=== PATIENT | male | born 1970 | race Caucasian/White ===

== ENCOUNTER 2017-03-27 13:22 | Inpatient (IN) | payer OTHER ==
--- NOTE | 2017-03-27 14:21 | PDOC ---
History of Present Illness - General Chief Complaint: Irregular Heart Beat Stated Complaint: CHEST PAIN Time Seen by Provider: 03/27/17 13:43 History Source: Patient Exam Limitations: Language Barrier ([employer] #[id number]) - History of Present Illness Initial Comments: 03/27/17 14:25 This is a 46-year-old man with past medical history of hypercholesterolemia and qlh-vjggasc-zqrsvthzr diabetes who presents to the emergency room today with palpitations and chest pain starting at approximately 4 AM today. Patient states usually wakes up around 4 AM to check sugars is diabetic and when he woke up he was experiencing "tachycardia" and pain to the left side of his chest. He reports the pain started at the left chest and radiated into his shoulder and down to the fingertips where he experiences tingling isolated to the left fingertips. He also was experiencing shortness of breath and dry cough this morning when he was having the chest pain. He states he beleived that the pain spontaneously resolved. Patient states the pain has gotten better since initial onset and currently is pain-free. He states that he has seen a sheetfed press operator in [place] but does not remember the name and that he was evaluated in the emergency department approximately 2 months ago and was placed on blood pressure medication for which he finished taking. He has not followed up with his primary doctor regarding the high blood pressure or the medications. Patient does not remember the name of the medication he was prescribed. Patient denies any fevers, chills, headaches, dizziness, abdominal pain, nausea, vomiting. Patient did note some rhinorrhea at the time use only chest pain. LESLIE-Kwabena Gibson Collator Hand- unknown [place] Denies tobacco Occasional EtOH Denies drugs Patient denies any travel outside the [place] within the past 30 days. Patient states his is travel to the [facility] and he has been around her but she is not experiencing any symptoms has been in her usual state of health since arriving from the [facility] approximately one month ago. Past History - Past Medical History Allergies/Adverse Reactions: Allergies Allergy/AdvReac Type Severity Reaction Status Date / Time No Known Allergies Allergy Verified 03/27/17 13:32 Home Medications: Ambulatory Orders Exenatide Microspheres [Bydureon] 2 mg SQ Q7D 03/27/17 Lisinopril [Prinivil] 10 mg PO DAILY 03/27/17 Metformin HCl [Metformin HCl ER] 1,000 mg PO BID 03/27/17 COPD: No Diabetes: Yes Hypercholesterolemia: Yes - Family Disease History Family Disease History: Diabetes: Mother - Immunization History Immunization Up to Date: Yes - Suicide/Smoking/Psychosocial Hx Smoking History: Never smoked Have you smoked in the past 12 months: No Hx Alcohol Use: No Drug/Substance Use Hx: No Substance Use Type: None *Physical Exam - Vital Signs Last Vital Signs Temp Pulse Resp BP Pulse Ox 97.5 F L 80 20 118/70 97 03/29/17 06:00 03/29/17 06:00 03/29/17 06:00 03/29/17 06:00 03/28/17 21:00 Heart Score/ECG Review - History History: Moderately suspicious - Electrocardiogram EKG: Normal - Age Age: 45-65 - Risk Factors Risk Factors Heart Score: Yes Hx Hypercholesterolemia, Yes Hx Diabetes, Yes Hx Obesity Based on the list above the patient has:: >/=3 risk factors or Hx atherosclerotic disease - Troponin Troponin: </= normal limit - Score Heart Score - Total: 4 - ECG Intrepretation Rhythm: Regular Rhythm - ECG Impressions Normal ECG: Yes ED Treatment Course - LABORATORY CBC & Chemistry Diagram: 03/27/17 14:40 03/27/17 14:40 - ADDITIONAL ORDERS Additional order review: 03/27/17 14:40 RBC 5.10 MCV 91.3 MCHC 34.1 RDW 13.6 MPV 6.8 L Neutrophils % 55.7 Lymphocytes % 31.3 Monocytes % 7.9 Eosinophils % 4.3 Basophils % 0.8 - RADIOLOGY Radiology Studies Ordered: Category Date Time Status CHEST PA & LAT [RAD] Stat Radiology 03/27/17 14:22 Completed - Medications Given in the ED: ED Medications Discontinued Medications Generic Name Dose Route Start Last Admin Trade Name Freq PRN Reason Stop Dose Admin Aspirin 324 mg 03/27/17 14:22 03/27/17 14:50 Asa - PO 03/27/17 14:23 324 mg ONCE ONE Administration Medical Decision Making - Medical Decision Making 03/27/17 14:32 A/P: This is a 46-year-old man with past medical history of hypercholesterolemia and axn-mzybkxw-qzawpmwrn diabetes who presents to the emergency room today with palpitations and chest pain starting at approximately 4 AM today. Patient states usually wakes up around 4 AM to check sugars is diabetic and when he woke up he was experiencing "tachycardia" and pain to the left side of his chest. He reports the pain started at the left chest and radiated into his shoulder and down to the fingertips where he experiences tingling isolated to the left fingertips. He also was experiencing shortness of breath and dry cough this morning when he was having the chest pain. He states he beleived that the pain spontaneously resolved. Patient states the pain has gotten better since initial onset and currently is pain-free. He states that he has seen a sheetfed press operator in [place] but does not remember the name and that he was evaluated in the emergency department approximately 2 months ago and was placed on blood pressure medication for which he finished taking. He has not followed up with his primary doctor regarding the high blood pressure or the medications. Patient does not remember the name of the medication he was prescribed. Patient denies any fevers, chills, headaches, dizziness, abdominal pain, nausea, vomiting. Patient did note some rhinorrhea at the time use only chest pain. Reports feeling bloated.Chest nontender. Respirations even and unlabored without accessory muscle use. Lungs clear to auscultation bilaterally. Resident's note on percussion of chest. RRR. S1 and S2 present. No murmur, rub or gallop auscultated. There is no peripheral edema noted. Abdomen with hyperactive bowel sounds. Abdomen soft nontender nondistended. Differential diagnoses include ACS, CHF, arrhythmia, pneumonia, bronchitis, GERD I will obtain a CBC with differential, CMP, lipase, cardiac profile, BNP, chest x-ray, EKG. I will give the patient 324 milligrams of aspirin by mouth. I will reevaluate the patient after laboratory testing and radiographic testing is completed. 03/27/17 16:46 The initial troponin is negative. Case discussed with RAHEL Thorne who is covering for Dr. Cortes. She accepts patient for tele obs. *DC/Admit/Observation/Transfer Diagnosis at time of Disposition: Chest pain in adult - Discharge Dispostion Condition at time of disposition: Guarded Admit: Yes - Referrals - Patient Instructions - Post Discharge Activity
[2017-03-27] MEDS ORDERED: ASPIRIN 81 MG CHEWABLE TABLETS PO ONE (14:22)
[2017-03-27] MEDS ORDERED: ASPIRIN 81 MG CHEWABLE TABLETS ONE (14:47)
[2017-03-27 14:48] LABS: BASOPHIL 0.8 % (0-2.0); EOSINOPHIL 4.3 % (0-4.5); MCH 31.1 pg (25.7-33.7); MCHC 34.1 g/dl (32.0-35.9); MEAN CELL VOLUME 91.3 fl (80-96); MEAN PLT VOLUME 6.8 fl (7.5-11.1); NEUTROPHILS 55.7 % (42.8-82.8); PLATELET COUNT 223 K/MM3 (134-434); RDW 13.6 % (11.9-15.9); WHITE BLOOD COUNT 8.3 K/mm3 (4.0-10.0)
[2017-03-27 15:23] LABS: ANION GAP 9 (8-16); BILIRUBIN,TOTAL 0.5 mg/dL (0.2-1.0); CO2 27 mmol/L (21-32); CREATININE 0.9 mg/dL (0.7-1.3); GLUCOSE,RANDOM 99 mg/dL (74-106); MAGNESIUM 1.9 mg/dL (1.8-2.4); SGOT/AST 28 U/L (15-37); SGPT/ALT 39 U/L (12-78); TOT PROT 7.6 g/dl (6.4-8.2)
[2017-03-27 15:25] LABS: ALK PHOS 65 U/L (45-117); CPK 223 IU/L (39-308); TROPONIN I < 0.02 ng/ml (0.00-0.05)
[2017-03-27 16:38] LABS: INR 0.99 (0.82-1.09); PROTHROMBIN TIME (PATIENT) 11.2 SEC (9.98-11.88)
[2017-03-27] MEDS ORDERED: EXENATIDE MICROSPHERES 2 MG SQ SCH (16:45)
[2017-03-27] MEDS ORDERED: PATIENT'S OWN MEDICATION (NON-FORMULARY) (Metformin Hcl [Metformin Hcl Er] 1,000 MG) PO SCH (22:00)
[2017-03-27 23:25] LABS: CPK 181 IU/L (39-308); TROPONIN I < 0.02 ng/ml (0.00-0.05)
[2017-03-28] MEDS: ASPIRIN 325 MG ENTERIC COATED TABLET (FP) PO SCH ×2 (01:34→09:06)
[2017-03-28 03:48] VITALS: BMI 28.7
[2017-03-28] MEDS: LISINOPRIL 10 MG TABLET (FP) PO SCH (09:06)
[2017-03-28] MEDS: HEPARIN NA (PORCINE) 5,000 UNITS/ML 1ML VIAL SQ SCH ×2 (09:06→21:31)
--- NOTE | 2017-03-28 13:10 | CON.CARD ---
Consult Consult Specialty:: Cardiology Referred by:: Dr Parra Reason for Consultation:: chest pain - History of Present Illness Chief Complaint: chest pain History of Present Illness: He is a 46 year old man squvy2dr of htn, chol, diabetes who came to the hospital after an episode of chest pain retrosternal across chest with palpitations described a a rapid heart beat and sob. The pain was pressure like , lasted over 15 minutes. Non exertional. No orthopnea, pnd or edema. Baseline exercise tolerance is good. - History Source History Provided By: Patient, Medical Record - Alcohol/Substance Use Hx Alcohol Use: No (social) - Smoking History Smoking history: Never smoked Have you smoked in the past 12 months: No Home Medications - Allergies Allergies/Adverse Reactions: Allergies Allergy/AdvReac Type Severity Reaction Status Date / Time No Known Allergies Allergy Verified 03/27/17 13:32 - Home Medications Home Medications: Ambulatory Orders Exenatide Microspheres [Bydureon] 2 mg SQ Q7D 03/27/17 Lisinopril [Prinivil] 10 mg PO DAILY 03/27/17 Metformin HCl [Metformin HCl ER] 1,000 mg PO BID 03/27/17 Family Disease History - Family Disease History Family History: Unable to Obtain Review of Systems - Review of Systems Constitutional: reports: No Symptoms Eyes: reports: No Symptoms HENT: reports: No Symptoms Neck: reports: No Symptoms Cardiovascular: reports: Chest Pain Respiratory: reports: No Symptoms Gastrointestinal: reports: Abdominal Pain, Bloating Genitourinary: reports: No Symptoms Vital Signs: Vital Signs Temperature 98.4 F 03/28/17 09:05 Pulse Rate 80 03/28/17 09:05 Respiratory Rate 16 03/28/17 09:05 Blood Pressure 114/76 03/28/17 09:05 O2 Sat by Pulse Oximetry (%) 98 03/28/17 09:05 Constitutional: Yes: Well Nourished, No Distress Eyes: Yes: Conjunctiva Clear, EOM Intact HENT: Yes: Atraumatic, Normocephalic Neck: Yes: Trachea Midline Respiratory: Yes: CTA Bilaterally Gastrointestinal: Yes: Normal Bowel Sounds, Soft Cardiovascular: Yes: Regular Rate and Rhythm JVD: No Carotid Bruit: No PMI: Non-Displaced Heart Sounds: Yes: S1, S2 Extremities: Yes: WNL Edema: No Peripheral Pulses WNL: Yes - Other Data Labs, Other Data: CBC, BMP 03/27/17 14:40 03/27/17 14:40 INR, PTT INR 0.99 (0.82-1.09) 03/27/17 14:40 Troponin, BNP 03/27/17 03/27/17 03/27/17 14:40 14:40 22:32 Troponin I < 0.02 < 0.02 B-Natriuretic Peptide 13.43 Troponin, BNP 03/27/17 03/27/17 03/27/17 14:40 14:40 22:32 Troponin I < 0.02 < 0.02 B-Natriuretic Peptide 13.43 Imaging - Results Chest X-ray: Report Reviewed (ericka) EKG: Report Reviewed (normal ecg) Problem List - Problems (1) Chest pain in adult Assessment/Plan: He has atypical chest pain but multiple risk factors for CAD. Will arrange for echo and stress test. check lipid panel fasting. No evidence of ACS. Code(s): R07.9 - CHEST PAIN, UNSPECIFIED
--- NOTE | 2017-03-28 15:30 | EKG ---
Test Reason : Blood Pressure : / mmHG Vent. Rate : 075 BPM Atrial Rate : 075 BPM P-R Int : 150 ms QRS Dur : 088 ms QT Int : 360 ms P-R-T Axes : 000 -01 018 degrees QTc Int : 402 ms NORMAL SINUS RHYTHM MODERATE VOLTAGE CRITERIA FOR LVH, MAY BE NORMAL VARIANT BORDERLINE ECG NO PREVIOUS ECGS AVAILABLE NO CLINICAL INFORMATION IS AVAILABLE Confirmed by KELI BELLA MD ([id number]) on 03/28/2017 3:30:26 PM Referred By: Confirmed By:KELI BELLA MD
--- NOTE | 2017-03-28 16:28 | CON.PULM ---
Consult Consult Specialty:: PULMONARY Referred by:: Dr. Cortes Reason for Consultation:: chest pain - History of Present Illness Chief Complaint: chest pain History of Present Illness: 46yo male with h/o hypercholesterolemia, DM who presents with chest pain and palpitations. Chest pain has since resolved. Mild shortness of breath which has since resolved. He denies cough or wheezing. He is a never smoker. Reports history of asthma but rarely uses his albuterol inhaler. No fevers recorded. CXR done on admission is clear. Being worked up by cardiology. - History Source History Provided By: Patient, Medical Record Limitations to Obtaining History: Language Barrier - Past Medical History Cardio/Vascular: Yes: Hyperlipdemia Endocrine: Yes: Diabetes Mellitus - Alcohol/Substance Use Hx Alcohol Use: No (social) - Smoking History Smoking history: Never smoked Have you smoked in the past 12 months: No Home Medications - Allergies Allergies/Adverse Reactions: Allergies Allergy/AdvReac Type Severity Reaction Status Date / Time No Known Allergies Allergy Verified 03/27/17 13:32 - Home Medications Home Medications: Ambulatory Orders Exenatide Microspheres [Bydureon] 2 mg SQ Q7D 03/27/17 Lisinopril [Prinivil] 10 mg PO DAILY 03/27/17 Metformin HCl [Metformin HCl ER] 1,000 mg PO BID 03/27/17 Review of Systems - Review of Systems Constitutional: denies: Chills, Fever Eyes: denies: Recent Change in Vision HENT: reports: Nasal Congestion. denies: Throat Pain Neck: denies: Stiffness, Tenderness Cardiovascular: reports: Chest Pain, Shortness of Breath. denies: Edema, Palpitations Respiratory: denies: Cough, Hemoptysis, Wheezing Gastrointestinal: denies: Abdominal Pain, Nausea, Vomiting Genitourinary: denies: Dysuria, Hematuria Neurological: denies: Dizziness, Headache Physical Exam Vital Sings: Vital Signs Temperature 97.9 F 03/28/17 14:31 Pulse Rate 84 03/28/17 14:31 Respiratory Rate 18 03/28/17 14:31 Blood Pressure 110/71 03/28/17 14:31 O2 Sat by Pulse Oximetry (%) 98 03/28/17 09:05 Constitutional: Yes: No Distress, Calm Eyes: Yes: Conjunctiva Clear, EOM Intact HENT: Yes: Atraumatic, Normocephalic Neck: Yes: Supple, Trachea Midline Cardiovascular: Yes: Regular Rate and Rhythm Respiratory: Yes: Regular, CTA Bilaterally ...Clubbing: No Gastrointestinal: Yes: Normal Bowel Sounds, Soft. No: Tenderness Edema: No Labs: CBC, BMP 03/27/17 14:40 03/27/17 14:40 Imaging - Results Chest X-ray: Report Reviewed, Image Reviewed (no infiltrates) Problem List - Problems (1) Chest pain in adult Code(s): R07.9 - CHEST PAIN, UNSPECIFIED (2) Hypercholesterolemia Code(s): E78.00 - PURE HYPERCHOLESTEROLEMIA, UNSPECIFIED (3) Diabetes Code(s): E11.9 - TYPE 2 DIABETES MELLITUS WITHOUT COMPLICATIONS Assessment/Plan Chest Pain Hypercholesterolemia Diabetes - cardiac work up in progress - pulmonary status appears stable and not the etiology of his chest pain - albuterol MDI as needed - DVT prophylaxis Thank you for this consult Kwabena Stover MD
--- NOTE | 2017-03-28 23:19 | HP ---
Admitting History and Physical - Primary Care Physician PCP: Kwabena Gibson (Rosanna Cortessdabigail) - Admission Chief Complaint: SOB,Chest pain History of Present Illness: This is a 46-year-old man with past medical history of hypercholesterolemia and ikm-hplehuy-ovcycuqhg diabetes who presents to the emergency room today with palpitations and chest pain starting at approximately 4 AM today. Patient states usually wakes up around 4 AM to check sugars is diabetic and when he woke up he was experiencing "tachycardia" and pain to the left side of his chest. He reports the pain started at the left chest and radiated into his shoulder and down to the fingertips where he experiences tingling isolated to the left fingertips. He also was experiencing shortness of breath and dry cough this morning when he was having the chest pain. He states he beleived that the pain spontaneously resolved. Patient states the pain has gotten better since initial onset and currently is pain-free. 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 He has not followed up with his primary doctor regarding the high blood pressure or the medications. Patient does not remember the name of the medication he was prescribed. Patient denies any fevers, chills, headaches, dizziness, abdominal pain, nausea, vomiting. Patient did note some rhinorrhea at the time use only chest pain. History Source: Patient, Medical Record Limitations to Obtaining History: Language Barrier - Past Medical History Cardiovascular: Yes: Hyperlipdemia Endocrine: Yes: Diabetes Mellitus - Smoking History Smoking history: Never smoked Have you smoked in the past 12 months: No - Alcohol/Substance Use Hx Alcohol Use: No (social) Home Medications - Allergies Allergies/Adverse Reactions: Allergies Allergy/AdvReac Type Severity Reaction Status Date / Time No Known Allergies Allergy Verified 03/27/17 13:32 - Home Medications Home Medications: Ambulatory Orders Exenatide Microspheres [Bydureon] 2 mg SQ Q7D 03/27/17 Lisinopril [Prinivil] 10 mg PO DAILY 03/27/17 Metformin HCl [Metformin HCl ER] 1,000 mg PO BID 03/27/17 Review of Systems - Review of Systems Constitutional: reports: No Symptoms Eyes: reports: No Symptoms HENT: reports: No Symptoms Neck: reports: No Symptoms Cardiovascular: reports: Chest Pain, Shortness of Breath Respiratory: reports: SOB Gastrointestinal: reports: No Symptoms Genitourinary: reports: No Symptoms Breasts: reports: No Symptoms Reported Musculoskeletal: reports: No Symptoms Integumentary: reports: No Symptoms Neurological: reports: No Symptoms Endocrine: reports: No Symptoms Hematology/Lymphatic: reports: No Symptoms Psychiatric: reports: No Symptoms Pain Intensity: 0 Physical Examination Vital Signs: Vital Signs Temperature 98.4 F 03/28/17 18:00 Pulse Rate 77 03/28/17 18:00 Respiratory Rate 18 03/28/17 18:00 Blood Pressure 111/71 03/28/17 18:00 O2 Sat by Pulse Oximetry (%) 97 03/28/17 21:00 Constitutional: Yes: Well Nourished, No Distress, Calm Cardiovascular: Yes: Regular Rate and Rhythm Respiratory: Yes: Regular Gastrointestinal: Yes: Normal Bowel Sounds Musculoskeletal: Yes: WNL Extremities: Yes: WNL Edema: No Peripheral Pulses WNL: Yes Neurological: Yes: Alert, Oriented Psychiatric: Yes: Alert, Oriented Labs: CBC, BMP 03/27/17 14:40 03/27/17 14:40 Imaging - Results X-ray: Report Reviewed Problem List - Problems (1) SOB (shortness of breath) Assessment/Plan: -seen by pulmonary -bronchodialator for SOB -Echo -Stres test -cardiology consult Code(s): R06.02 - SHORTNESS OF BREATH (2) Chest pain in adult Assessment/Plan: -cardiology consult -echo -stress test -labs-lipids A1c, trop Code(s): R07.9 - CHEST PAIN, UNSPECIFIED Assessment/Plan see problem list
[2017-03-29 08:07] LABS: CHOLESTEROL 182 mg/dL (50-200); TROPONIN I < 0.02 ng/ml (0.00-0.05)
[2017-03-29] MEDS: HEPARIN NA (PORCINE) 5,000 UNITS/ML 1ML VIAL SQ SCH (10:14)
[2017-03-29] MEDS: ASPIRIN 325 MG ENTERIC COATED TABLET (FP) PO SCH (10:15)
[2017-03-29 14:36] VITALS: TEMP 98.4
[2017-03-29] MEDS ORDERED: OMEGA-3 ACID ETHYL ESTERS (FATTY-ACIDS) 1 GM CAPSULE (FP) PO SCH (15:45)
--- NOTE | 2017-03-29 15:49 | DS ---
Physical Examination Vital Signs: Vital Signs Temperature 98.4 F 03/29/17 14:00 Pulse Rate 94 H 03/29/17 14:00 Respiratory Rate 18 03/29/17 14:00 Blood Pressure 113/74 03/29/17 14:00 O2 Sat by Pulse Oximetry (%) 99 03/29/17 10:00 Constitutional: Yes: No Distress Eyes: Yes: WNL HENT: Yes: WNL Neck: Yes: WNL Cardiovascular: Yes: WNL Respiratory: Yes: WNL Gastrointestinal: Yes: WNL Renal/: Yes: WNL Musculoskeletal: Yes: WNL Extremities: Yes: WNL Edema: No Peripheral Pulses WNL: Yes Integumentary: Yes: WNL Wound/Incision: Yes: Clean/Dry Neurological: Yes: WNL ...Motor Strength: WNL Psychiatric: Yes: WNL Labs: CBC, BMP 03/27/17 14:40 03/27/17 14:40 Discharge Summary Reason For Visit: CHEST PAIN IN ADULT Current Active Problems Chest pain in adult (Acute) Diabetes (Acute) Hypercholesterolemia (Acute) SOB (shortness of breath) (Acute) Procedures: Principal: stress test Other Procedures: echo Hospital Course: admitted for acute chest pain rule out cardiac ischemia Condition: Fair - Instructions Diet, Activity, Other Instructions: SEE DR GIBSON TOMORROW AT 9AM WITH CARDIOLOGY FOLLOW UP OUTPATIENT RETURN TO ED IF CHEST PAIN RETURNS low fat/low sodium Referrals: Kwabena Gibson [Primary Care Provider] - Disposition: HOME - Home Medications Comprehensive Discharge Medication List: Ambulatory Orders Exenatide Microspheres [Bydureon] 2 mg SQ Q7D 03/27/17 Lisinopril [Prinivil] 10 mg PO DAILY 03/27/17 Metformin HCl [Metformin HCl ER] 1,000 mg PO BID 03/27/17
--- NOTE | 2017-03-29 16:15 | PN ---
Progress Note, Physician Chief Complaint: Presently comfortable History of Present Illness: This is a 46 year old man history of HTN, HLD, and diabetes who came to the hospital after an episode of chest pain retrosternal across chest with palpitations described a a rapid heart beat and SOB. The pain was pressure like , lasted over 15 minutes. Non exertional. No orthopnea, pnd or edema. Baseline exercise tolerance is good. - Current Medication List Current Medications: Active Medications Aspirin (Ecotrin -) 325 mg PO DAILY [facility] Last Admin: 03/29/17 10:15 Dose: 325 mg Heparin Sodium (Porcine) (Heparin -) 5,000 unit SQ BID [facility] Last Admin: 03/29/17 10:14 Dose: 5,000 unit Lisinopril (Prinivil) 10 mg PO DAILY [facility] Last Admin: 03/28/17 09:06 Dose: 10 mg Metformin HCl (Glucophage Xr -) 1,000 mg PO BIDAC [facility] Last Admin: 03/29/17 06:58 Dose: Not Given Non-Formulary Medication (Exenatide Microspheres [Bydureon]) 2 mg SQ Q7D [facility] Last Admin: 03/27/17 19:56 Dose: Not Given Awgyn-6-Nnfl Ethyl Esters (Lovaza -) 2 gm PO BID [facility] - Objective Vital Signs: Vital Signs Temperature 98.4 F 03/29/17 14:00 Pulse Rate 94 H 03/29/17 14:00 Respiratory Rate 18 03/29/17 14:00 Blood Pressure 113/74 03/29/17 14:00 O2 Sat by Pulse Oximetry (%) 99 03/29/17 10:00 Constitutional: Yes: No Distress HENT: Yes: WNL Neck: Yes: WNL Cardiovascular: Yes: Regular Rate and Rhythm (NL S1S2 no MRHG) Respiratory: Yes: CTA Bilaterally Gastrointestinal: Yes: Soft Extremities: Yes: WNL Neurological: Yes: Alert, Oriented (Grossly non focal) Labs: CBC, BMP 03/27/17 14:40 03/27/17 14:40 INR, PTT INR 0.99 (0.82-1.09) 03/27/17 14:40 Assessment/Plan Chest Pain Now resolved Echcoardiogram 03/29/17 Showed an EF of 62% with normal LV function, mild MAC, mild MR, and mild TR. Not yet resulted (can be followed up as an out patient), he can be discharged home with follow up. Would continue ASA 81 mg daily/lisinopril 10 mg daily/Metformin and fish oil/
[2017-03-29] MEDS ORDERED: PT OWN MED DRAWER 7, Y5N ONE (16:19)
[2017-03-29] MEDS: LISINOPRIL 10 MG TABLET (FP) PO SCH (16:33)
--- NOTE | 2017-03-29 17:17 | TRE ---
Protocol Name : BARBARA Max Work Load (METS*10) : 90 Time In Exercise Phase : 00:07:19 Max. Systolic BP : 144 mmHg Max Diastolic BP : 80 mmHg Max Heart Rate : 137 BPM Max Predicted Heart Rate : 172 BPM Attending Physician : DR. SANCHEZ Reason For Termination : DIZZINESS Reason for Test : CHEST PAIN Stress Protocol : BARBARA Rest HR : 83 BPM PeakEx METs : 9.0 METS Arrhythmias : No Arrhythmias Resting ECG : Normal Recovery ECG Response (OLD) : Overall Impression : Sensitivity limited by failure to reach target HR Chest Pain : No Chest Pain HR Response To Exercise : Failure to Reach Target HR BP Response To Exercise : Normal Resting BP with Appropriate Response Functional Capacity : Normal Diagnosis : 1. NON-DIAGNOSTIC STRESS TEST DUE TO INABILITY TO REACH TARGET HEART RATE 2. APPROPRIATE BLOOD PRESSURE RESPONSE 3. FAIR EXERCISE TOLERANCE 4. PATIENT EXPERIENCED DIZZINESS WHICH STOPPED THE STUDY 5. NO SIGNIFICANT ECG ABNORMALITIES Confirmed by MATT SANCHEZ MD ([id number]) on 03/29/2017 5:17:20 PM
[2017-03-29 18:04] VITALS: BP 128/86; PULSE 88
== END 2017-03-29 18:42 | disposition home or self-care (01) | DRG 201 ==
LOC: JER 13:22 → JERBED 16:48 → OBSVTOIN 03-28 00:20 → J4S 03-28 01:23
PROVIDERS: ADMIT Family Medicine; ATTEND Family Medicine
DX: R00.2 Palpitations (principal); R07.89 Other chest pain; E78.00 Pure hypercholesterolemia, unspecified; E11.9 Type 2 diabetes mellitus without complications; I10 Essential (primary) hypertension; I34.0 Nonrheumatic mitral (valve) insufficiency; R06.02 Shortness of breath
CPT/HCPCS: 36415; 71020-TC; 80053; 80061; 82550; 82553; 83036; 83721; 83735; 83880; 84484; 85025; 85610; 93005; 93010; 93017; 93018; 93306-TC; 99285-25; G0378; J1644

== ENCOUNTER 2017-05-07 09:12 | Emergency (ER) | payer OTHER ==
[2017-05-07 09:33] VITALS: BP 117/88; PULSE 108; TEMP 98.2; BMI 25.8
--- NOTE | 2017-05-07 10:33 | PDOC ---
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 Was driving when the onset occurred. Has had chronic sinusitis for 4 months. Patient vomited twice last night.] Allergies: No known allergies Medications: [See medication list] Family History: Non-contributory Social History: Denies smoking, alcohol use, or IVDU Review of Systems GENERAL/CONSTITUTIONAL: [No fever or chills. No weakness. No weight change.] HEAD, EYES, EARS, NOSE AND THROAT: [No change in vision. No ear pain or discharge. No sore throat. Nasal congestion.] CARDIOVASCULAR: [No chest pain or shortness of breath.] RESPIRATORY: [No cough, wheezing, or hemoptysis.] GASTROINTESTINAL: [No nausea, vomiting, diarrhea or constipation. No rectal bleeding.] GENITOURINARY: [No dysuria, frequency, or change in urination.] MUSCULOSKELETAL: [No joint or muscle swelling or pain. No neck or back pain.] SKIN AND BREASTS: [No rash or easy bruising.] NEUROLOGIC: [No headache, vertigo, loss of consciousness, or loss of sensation.] PSYCHIATRIC: [No depression or anxiety.] ENDOCRINE: [No increased thirst. No abnormal weight change.] HEMATOLOGIC/LYMPHATIC: [No anemia, easy bleeding, or history of blood clots.] ALLERGIC/IMMUNOLOGIC: [No hives or skin allergy. No latex allergy.] Physical Exam: GENERAL: [The patient is awake, alert, and fully oriented, in no acute distress. ] HEAD: [Normal with no signs of trauma. + frontal sinus pain, sinuses congested. ] EYES: [Pupils equal, round and reactive to light, extraocular movements intact, sclera anicteric, conjunctiva clear.] ENT: [Ears normal, nares patent, oropharynx clear without exudates. Moist mucous membranes. No uvula deviation] NECK: [Normal range of motion, supple without lymphadenopathy, JVD, or masses.] LUNGS: [Breath sounds equal, clear to auscultation bilaterally. No wheezes, and no crackles.] HEART: [Regular rate and rhythm, normal S1 and S2 without murmur, rub or gallop. ] ABDOMEN: [Soft, nontender, normoactive bowel sounds. No guarding, no rebound. No masses. No bruising or abrasions] MUSCULOSKELETAL: [Normal range of motion, no edema. No clubbing or cyanosis. No cords, erythema, or tenderness. No CVA Tenderness with fist palpation. Bilareral knees with no edema, no erythema.] NEUROLOGICAL: [Cranial nerves II through XII grossly intact. Normal speech, normal gait.] SKIN: [Warm, Dry, normal turgor, no rashes or lesions noted. No erythema or edema. ] Past History - Past Medical History Allergies/Adverse Reactions: Allergies Allergy/AdvReac Type Severity Reaction Status Date / Time No Known Allergies Allergy Verified 05/07/17 09:34 Home Medications: Ambulatory Orders Exenatide Microspheres [Bydureon] 2 mg SQ Q7D 03/27/17 Lisinopril [Prinivil] 10 mg PO DAILY 03/27/17 Metformin HCl [Metformin HCl ER] 1,000 mg PO BID 03/27/17 Aspirin Coated [Ecotrin -] 325 mg PO DAILY tablet. 03/29/17 Metformin Xr [Glucophage Xr -] 1,000 mg PO BIDAC tab.sr.24h 03/29/17 [place]-3 Acid Ethyl Esters [Lovaza -] 2 gm PO BID #60 cap 03/29/17 Amox-Tr/K Cl [Augmentin - 875Mg Tablet] 1 tab PO BID #14 tablet 05/07/17 Fluticasone Prop 0.05% Nasal [Flonase -] 1 - 2 spray NS BID #1 spray.pump Fluticasone Prop 0.05% Nasal [Flonase -] 1 - 2 spray NS BID #1 spray.pump COPD: No Diabetes: Yes HTN: Yes Hypercholesterolemia: Yes - Family Disease History Family Disease History: Diabetes: Mother - Immunization History Immunization Up to Date: Yes - Suicide/Smoking/Psychosocial Hx Smoking History: Never smoked Have you smoked in the past 12 months: No Information on smoking cessation initiated: No Hx Alcohol Use: No Drug/Substance Use Hx: No Substance Use Type: None Hx Substance Use Treatment: No *Physical Exam - Vital Signs Last Vital Signs Temp Pulse Resp BP Pulse Ox 98.2 F 108 H 16 117/88 98 05/07/17 09:30 05/07/17 09:30 05/07/17 09:30 05/07/17 09:30 05/07/17 09:30 Medical Decision Making - Medical Decision Making 05/07/17 14:14 A/P: Patient with clinical signs of an acute sinusitis. Patient had fever last evening which started the pain to bilateral lower extremities. Total 60 mg IM 1 given with good result patient reports pain is 100% resolved. Based upon patient's clinical presentation I've tested for influenza. Influenza was negative I will start patient on Augmentin and Flonase, follow-up with ENT. I discussed the physical exam findings, ancillary test results and final diagnoses with the patient. I answered all of the patient's questions. The patient was satisfied with the care received and felt comfortable with the discharge plan and treatment plan. The patient will call to arrange follow-up and will return to the Emergency Department with any new, persistent or worsening symptoms. *DC/Admit/Observation/Transfer Diagnosis at time of Disposition: Sinusitis Qualifiers: Sinusitis location: frontal Chronicity: acute Recurrence: non-recurrent Qualified Code(s): J01.10 - Acute frontal sinusitis, unspecified - Discharge Dispostion Condition at time of disposition: Stable Admit: No - Prescriptions Prescriptions: Amox-Tr/K Cl [Augmentin - 875Mg Tablet] 1 tab PO BID #14 tablet Fluticasone Prop 0.05% Nasal [Flonase -] 1 - 2 spray NS BID #1 spray.pump Fluticasone Prop 0.05% Nasal [Flonase -] 1 - 2 spray NS BID #1 spray.pump - Referrals Referrals: Kwabena Gibson [Primary Care Provider] - - Patient Instructions Printed Discharge Instructions: Sinusitis, Sinus Headache, DI for Musculoskeletal Pain Additional Instructions: Motrin for pain or fever. If any pain, fever, or other concerns return to the ER. - Post Discharge Activity Forms/Work/School Notes: Back to Work
[2017-05-07] MEDS ORDERED: KETOROLAC TROMETHAMINE 60 MG/2 ML VIAL IM ONE (10:47)
[2017-05-07] MEDS ORDERED: KETOROLAC TROMETHAMINE 60 MG/2 ML VIAL ONE (10:51)
== END 2017-05-07 11:39 | disposition home or self-care (01) ==
LOC: JERFT 09:12
PROC: 3E0233Z Introduction of Anti-inflammatory into Muscle, Percutaneous Approach (ICD-10-PCS; principal; 2017-05-07)
DX: J01.10 Acute frontal sinusitis, unspecified (principal); I10 Essential (primary) hypertension; E78.00 Pure hypercholesterolemia, unspecified; E11.9 Type 2 diabetes mellitus without complications; Z79.84 Long term (current) use of oral hypoglycemic drugs
CPT/HCPCS: 87804; 99281-25

== ENCOUNTER 2018-06-02 10:52 | Emergency (ER) | payer OTHER ==
[2018-06-02] MEDS ORDERED: SODIUM CHLORIDE 1,000 ML IV STA (11:27)
[2018-06-02 11:33] VITALS: BMI 31.0
[2018-06-02] MEDS ORDERED: morphine CARPU-JECT 4 MG/1 ML DISP.SYRIN IVPUSH ONE ×2 (11:38→13:31)
--- NOTE | 2018-06-02 11:44 | PDOC ---
History of Present Illness - General Stated Complaint: ABD PAIN Time Seen by Provider: 06/02/18 11:27 History Source: Patient, Family Exam Limitations: No Limitations - History of Present Illness Initial Comments: 06/02/18 11:39 HPI Mr Aburto is a 48 YOM with h/o DM2, HLD, fatty liver presenting with diffuse mid Abdominal pain since this morning, s/p passage of outine colonoscopy at 9am with Dr Estrada. of note, 3 polyps were removed and AP developed post procedure, since then unable to pass flatus despite lying on side. rectal tube was attempted to allow passage of flatus, but aborted due to patient discomfort. now pt c/o mid abdominal pain, nonradiating, +flatus denies n/v, f/c, Cp, sob, urinary sx. has not eaten x 2 days in prep for the colonoscopy. No sick contacts or travel. No new changes in medications. Allergies: None Past Medical History: DM, HLD, fatty liver Social history: Lives with family. No smoking. No alcohol. No illicit drugs. Surgical history: None GI: Dr Estrada ROS Constitutional: no fevers or chills. HEENT: no headache or dizziness. No congestion. No visual/hearing disturbances. CVS: no cp or syncope. Resp: no sob. No cough. Gastrointestinal: no nausea or vomiting or diarrhea or bloody stools. + Abdominal pain. Genitourinary: no urinary sx, hematuria. MUSCULOSKELETAL: No joint pain and swelling. No neck or back pain. SKIN: no redness or skin changes, no discharge, no rash. No wounds. Hematologic: no easy bruising/bleeding. NEUROLOGIC: No headache, dizziness, LOC or altered mental status. No weakness, numbness or tingling. Allergic/Immunologic: no allergies All other systems reviewed and negative, or as documented in HPI. PE: General: uncomfortable, colicky HEENT: NCAT, PERRL, EOMI, clear conjunctiva, anicteric, dry mucus membranes, clear oropharynx, no oral lesions.. Neck: neck supple, FROM Resp: CTAB, normal and even respirations, no respiratory distress CVS: +tachy, no murmurs, 2+ peripheral pulses throughout, no peripheral edema Abdomen: soft, distended, +BS hyperactive; diffuse tenderness, worse around umbilicus and mid abdomen. +guarding; no rebound. Back: nontender, normal inspection and ROM MSK: no edema, MEJÍA x4, ROM intact. No clubbing or cyanosis. normal bulk and tone. Extremities: no calf tenderness Neuro: alert, speech clear; no focal neurologic deficits. Skin: warm and well perfused, cap refill <2 sec, normal color 06/02/18 11:41 06/02/18 11:42 06/02/18 15:40 Past History - Past Medical History Allergies/Adverse Reactions: Allergies Allergy/AdvReac Type Severity Reaction Status Date / Time No Known Allergies Allergy Verified 06/02/18 11:26 Home Medications: Ambulatory Orders Aspirin Coated [Ecotrin -] 325 mg PO DAILY tablet.dr 03/29/17 Fluticasone Prop 0.05% Nasal [Flonase -] 1 - 2 spray NS BID #1 spray.pump Fluticasone Prop 0.05% Nasal [Flonase -] 1 - 2 spray NS BID #1 spray.pump Cholecalciferol (Vitamin D3) [Vitamin D3] 5,000 unit PO WEEKLY 06/02/18 Dulaglutide [Trulicity] 1.5 mg SQ DAILY 06/02/18 Icosapent Ethyl [Vascepa] 4 gm PO DAILY 06/02/18 Ramipril 2.5 mg PO DAILY 06/02/18 Sitagliptin Phos/Metformin HCl [Janumet Xr 50-1,000 mg Tablet] 1 tab PO DAILY COPD: No Diabetes: Yes HTN: Yes Hypercholesterolemia: Yes - Family Disease History Family Disease History: Diabetes: Mother - Immunization History Immunization Up to Date: Yes - Suicide/Smoking/Psychosocial Hx Smoking History: Never smoked Have you smoked in the past 12 months: No Information on smoking cessation initiated: No Hx Alcohol Use: Yes (Rum 2 weeks ago.) Drug/Substance Use Hx: No Substance Use Type: None Hx Substance Use Treatment: No *Physical Exam - Vital Signs Last Vital Signs Temp Pulse Resp BP Pulse Ox 97.4 F L 86 20 114/52 L 100 06/02/18 11:10 06/02/18 11:10 06/02/18 11:10 06/02/18 11:10 06/02/18 11:10 Moderate Sedation - Procedure Monitoring Vital Signs: Procedure Monitoring Vital Signs Temperature 97.4 F L 06/02/18 11:10 Pulse Rate 86 06/02/18 11:10 Respiratory Rate 20 06/02/18 11:10 Blood Pressure 114/52 L 06/02/18 11:10 O2 Sat by Pulse Oximetry (%) 100 06/02/18 11:10 ED Treatment Course - LABORATORY CBC & Chemistry Diagram: 06/02/18 12:07 06/02/18 12:07 - RADIOLOGY Radiology Studies Ordered: Category Date Time Status ABDOMEN & PELVIS CT WITH CONTR [CT] Stat CT Scan 06/02/18 11:37 Ordered CHEST PA & LAT [RAD] Stat Radiology 06/02/18 11:28 Ordered Medical Decision Making - Medical Decision Making 06/02/18 13:32 See HPI for details Vital signs reviewed, wnl. DDx abdominal pain: Renal colic, biliary colic, metabolic/electrolyte derangements. GERD, PUD, esophageal spasm, pancreatitis, hepatitis, constipation , colitis, ileus, SBO, anesthesia side effect, perforation, perf viscus, hernia , appendicitis, diverticulitis, mesenteric ischemia. post colonoscopy discomfort. Prior notes reviewed, including admissions, discharges and consultations. laboratory results and imaging reviewed, basic labs and lytes wnl, lactic normal , reassuring, less likely ischemic. ED course: analgesia with morphine for severe pain, IVF CT a/p to r/o perforation given recent colonoscopy this morning results: neg for perf/obstruction, fatty liver noted. Dr Estrada call to update with results - discharge with results and outpatient follow up of the colonoscopy results PO challenged, pain controlled, eager for discharge. ambulatory in department, feels improved. Dispo Pt to be discharged in stable condition. Patient and family made aware of impression and plan, return precautions discussed (including but not limited to worsening pain or symptoms), fevers, or signs of infection, chest pain, respiratory distress, inability to tolerate oral intake, dehydration, syncope, or neurologic changes). Follow up with PMD and/or specialist as recommended, follow up information provided, take medications as instructed for duration of time. continue with supportive care, avoid triggers and precipitants. 06/02/18 15:38 06/02/18 15:39 *DC/Admit/Observation/Transfer Diagnosis at time of Disposition: Abdominal pain, H/O colonoscopy - Discharge Dispostion Disposition: HOME Condition at time of disposition: Improved Decision to Admit order: No - Referrals Referrals: Genaro Estrada MD [Staff Physician] - - Patient Instructions Printed Discharge Instructions: DI for Abdominal Pain-Adult, DI for Colonoscopy Additional Instructions: Your laboratory / imaging results were normal, your CT abdomen and pelvis was negative, no perforation or obstruction or inflammation. fatty liver noted. this is most likely post procedural discomfort and gas that should resolve over the next several days. you should drink fluids and eat as tolerated, as you have been fasting for your procedure that can make you uncomfortable as well. Follow up with your physician and consultants as instructed, follow up with Dr Estrada for your colonoscopy results. we have spoken with your doctor, Dr Estrada, who was made aware of your visit and results. Return if worsening symptoms including fevers, headache, vomiting, visual or hearing disturbances, abdominal pain, chest pain, shortness of breath, syncope, dehydration, inability to take things by mouth/vomiting, altered mental status, or worsening concerning symptoms. your medications on discharge include_ side effects may include upset stomach, abdominal pain, vomiting, or diarrhea. do not drink alcohol with your medications. ------- Linh resultados de laboratorio / imgenes fueron normales, Tamez tomografa computarizada de abdomen y pelvis fue negativa, sin perforacin u obstruccin o inflamacin. Hgado graso notado. esto es muy probable que se trate de molestias y gases posteriores al procedimiento que deben resolverse en los prximos silvestre. debe jody lquidos y comer segn lo tolere, ya que hollins estado ayunando para tamez procedimiento que tambin puede hacer que se sienta incmodo. Paulino un seguimiento con tamez mdico y consultores segn las instrucciones, y paulino un seguimiento con el Dr. Estrada para obtener los resultados de tamez colonoscopia. Hemos hablado con tamez mdico, el Dr. Estrada, quien fue informado de tamez visita y de los resultados. Regrese si los sntomas empeoran, incluyendo fiebre, dolor de bruce, vmitos, trastornos visuales o auditivos, dolor abdominal, dolor de pecho, falta de aliento, sncope, deshidratacin, incapacidad para jody cosas por la boca / vmitos, estado mental alterado o empeoramiento de los sntomas. Linh medicamentos en el momento del sanket incluyen efectos secundarios que pueden incluir malestar estomacal, dolor abdominal, vmitos o diarrea. No tome alcohol con linh medicamentos. - Post Discharge Activity
[2018-06-02] MEDS ORDERED: morphine SULFATE 4 MG/ML VIAL ONE ×2 (12:02→14:47)
[2018-06-02 12:17] LABS: BASO % 0.4 % (0-2.0); EOS % 0.7 % (0-4.5); HEMOGLOBIN 16.6 GM/dL (11.7-16.9); LYMPH % 13.3 % (8-40); MCH 32.8 pg (25.7-33.7); MCHC 34.7 g/dl (32.0-35.9); MEAN CELL VOLUME 94.4 fl (80-96); MEAN PLT VOLUME 7.2 fl (7.5-11.1); MONO % 8.5 % (3.8-10.2); NEUT % 77.1 % (42.8-82.8); PLATELET COUNT 249 K/MM3 (134-434); RBC 5.08 M/mm3 (4.00-5.60); RDW 13.7 % (11.9-15.9); WHITE BLOOD COUNT 11.5 K/mm3 (4.0-10.0)
[2018-06-02 12:48] LABS: ALBUMIN 4.5 g/dl (3.4-5.0); ALK PHOS 56 U/L (45-117); ANION GAP 7 MMOL/L (8-16); BILIRUBIN,TOTAL 0.9 mg/dL (0.2-1); BLOOD UREA NITROGEN 13 mg/dL (7-18); CALCIUM 9.8 mg/dL (8.5-10.1); CHLORIDE 102 mmol/L (98-107); CO2 30 mmol/L (21-32); CREATININE 1.1 mg/dL (0.55-1.3); GLUCOSE,RANDOM 118 mg/dL (74-106); LIPASE 233 U/L (73-393); POTASSIUM 4.4 mmol/L (3.5-5.1); SGOT/AST 40 U/L (15-37); SGPT/ALT 67 U/L (13-61); SODIUM 139 mmol/L (136-145); TOT PROT 8.2 g/dl (6.4-8.2)
[2018-06-02 15:59] VITALS: BP 120/82; PULSE 82; TEMP 97.8
== END 2018-06-02 16:22 | disposition home or self-care (01) ==
LOC: JER 10:52
PROC: 3E0337Z Introduction of Electrolytic and Water Balance Substance into Peripheral Vein, Percutaneous Approach (ICD-10-PCS; principal; 2018-06-02)
PROC: 3E033NZ Introduction of Analgesics, Hypnotics, Sedatives into Peripheral Vein, Percutaneous Approach (ICD-10-PCS; 2018-06-02)
DX: R10.84 Generalized abdominal pain (principal); Z98.890 Other specified postprocedural states; I10 Essential (primary) hypertension; E11.9 Type 2 diabetes mellitus without complications; Z79.84 Long term (current) use of oral hypoglycemic drugs; E78.00 Pure hypercholesterolemia, unspecified
CPT/HCPCS: 36415; 71046-TC-FY; 74177-TC; 80053; 83605; 83690; 85025; 99283-25; J7030

== ENCOUNTER 2019-06-26 21:58 | Emergency (ER) | payer OTHER ==
[2019-06-26 22:12] VITALS: TEMP 98; BMI 31.0
--- NOTE | 2019-06-27 00:07 | PDOC ---
*Physical Exam - Vital Signs Last Vital Signs Temp Pulse Resp BP Pulse Ox 98.0 F 72 19 152/104 H 100 06/26/19 22:08 06/26/19 22:08 06/26/19 22:08 06/26/19 22:08 06/26/19 22:08 ED Treatment Course - LABORATORY CBC & Chemistry Diagram: 06/27/19 00:55 06/27/19 00:55 Medical Decision Making - Medical Decision Making 06/27/19 00:07 Patient seen by the advanced practice provider under my supervision. Ancillary testing reviewed as necessary. I agree with plan as outlined by the advanced practice provider. Discharge - Discharge Information Problems reviewed: Yes Clinical Impression/Diagnosis: Renal colic on left side Disposition: HOME - Additional Discharge Information Prescriptions: Ibuprofen 600 mg PO QID PRN #20 tablet PRN Reason: Pain Oxycodone HCl/Acetaminophen [Percocet 5-325 mg Tablet] 1 - 2 tab PO Q6H PRN #7 tab MDD 4 PRN Reason: Moderate Pain Tamsulosin HCl [Flomax] 0.4 mg PO DAILY #7 cap.er.24h - Follow up/Referral Referrals: Felix Mccoy MD [Primary Care Provider] - Heath Palencia MD [Staff Physician] - - Patient Discharge Instructions Patient Printed Discharge Instructions: Kidney Stones (Alternative Therapy) Additional Instructions: Drink plenty of fluids Take Flomax as prescribed Take ibuprofen every 6 hours as needed for [id number] pain Take Percocet every 6 hours as needed for moderate pain Follow-up with a urologist as soon as possible Return to the emergency room if symptoms worsen - Post Discharge Activity Work/Back to School Note: Back to Work
[2019-06-27] MEDS ORDERED: ACETAMINOPHEN 1000 MG/100 ML VIAL (NON FORMULARY) IVPB ONE (00:27)
[2019-06-27] MEDS ORDERED: SODIUM CHLORIDE 500 ML IV STA (00:27)
--- NOTE | 2019-06-27 00:27 | PDOC ---
History of Present Illness - General Chief Complaint: Pain, Acute Stated Complaint: CHEST PAIN Time Seen by Provider: 06/26/19 23:58 History Source: Patient - History of Present Illness Initial Comments: 06/27/19 00:43 49-year-old male complaining of left lower quadrant pain radiating to the left flank. X1 day. Patient reports no BM today. positive nausea. Denies vomiting , diarrhea, fever/chills, testicular pain. Past medical history diabetes and fatty liver Past History - Past Medical History Allergies/Adverse Reactions: Allergies Allergy/AdvReac Type Severity Reaction Status Date / Time No Known Allergies Allergy Verified 06/02/18 11:26 Home Medications: Ambulatory Orders Aspirin Coated [Ecotrin -] 325 mg PO DAILY tablet.dr 03/29/17 Fluticasone Prop 0.05% Nasal [Flonase -] 1 - 2 spray NS BID #1 spray.pump Fluticasone Prop 0.05% Nasal [Flonase -] 1 - 2 spray NS BID #1 spray.pump Cholecalciferol (Vitamin D3) [Vitamin D3] 5,000 unit PO WEEKLY 06/02/18 Dulaglutide [Trulicity] 1.5 mg SQ DAILY 06/02/18 Icosapent Ethyl [Vascepa] 4 gm PO DAILY 06/02/18 Ramipril 2.5 mg PO DAILY 06/02/18 Sitagliptin Phos/Metformin HCl [Janumet Xr 50-1,000 mg Tablet] 1 tab PO DAILY Ibuprofen 600 mg PO QID PRN #20 tablet 06/27/19 Oxycodone HCl/Acetaminophen [Percocet 5-325 mg Tablet] 1 - 2 tab PO Q6H PRN #7 tab MDD 4 06/27/19 Tamsulosin HCl [Flomax] 0.4 mg PO DAILY #7 cap.er.24h 06/27/19 COPD: No Diabetes: Yes HTN: Yes Hypercholesterolemia: Yes - Surgical History Abdominal Surgery: Yes (Colonoscopy 06/02/18) GI Surgery: Yes (colonoscopy 06/02/2018) - Immunization History Immunization Up to Date: Yes - Psycho Social/Smoking Cessation Hx Smoking History: Never smoked Have you smoked in the past 12 months: No Hx Alcohol Use: No Drug/Substance Use Hx: No Substance Use Type: None Hx Substance Use Treatment: No Review of Systems - Review of Systems Able to Perform ROS?: Yes Is the patient limited German proficient: No Constitutional: No: Symptoms Reported, See HPI, Chills, Diaphoresis, Fever, Loss of Appetite, Malaise, Night Sweats, Weakness, Weight Stable, Unintentional Wgt. Loss, Unexplained wgt Loss, Other ABD/GI: Yes: Constipated, Nausea, Abdominal cramping *Physical Exam - Vital Signs Last Vital Signs Temp Pulse Resp BP Pulse Ox 98.0 F 72 19 152/104 H 100 06/26/19 22:08 06/26/19 22:08 06/26/19 22:08 06/26/19 22:08 06/26/19 22:08 - Physical Exam General Appearance: Yes: Appropriately Dressed Respiratory/Chest: positive: Lungs Clear, Normal Breath Sounds Cardiovascular: positive: Regular Rhythm, Regular Rate Gastrointestinal/Abdominal: positive: Normal Bowel Sounds, Tender (LLQ pain), Soft Musculoskeletal: negative: CVA Tenderness Extremity: positive: Normal Capillary Refill, Normal Inspection, Normal Range of Motion Integumentary: positive: Normal Color, Dry, Warm Neurologic: positive: Fully Oriented, Alert, Normal Mood/Affect ED Treatment Course - LABORATORY CBC & Chemistry Diagram: 06/27/19 00:55 06/27/19 00:55 ED Progress Note - Progress Note Progress Note: renal colic; abdominal pain P cbc cmp CTAP UA + blood Medical Decision Making - Medical Decision Making 06/27/19 03:55 Lung bases are clear. The visualized cardiac chambers are normal size and configuration. There is mild left hydronephrosis and perinephric edema secondary to a 2 mm distal UVJ stone. There is delayed enhancement of contrast in the left kidney. Tiny right renal stones are noted. Normal liver, gallbladder, pancreas, spleen, adrenal glands . The stomach and abdominal small and large bowel are normal. There is no aortic aneurysm. There is no significant retroperitoneal lymphadenopathy. The pelvic small and large bowel are normal. The appendix is normal. The urinary bladder not Discharge - Discharge Information Problems reviewed: Yes Clinical Impression/Diagnosis: Renal colic on left side Disposition: HOME - Additional Discharge Information Prescriptions: Ibuprofen 600 mg PO QID PRN #20 tablet PRN Reason: Pain Oxycodone HCl/Acetaminophen [Percocet 5-325 mg Tablet] 1 - 2 tab PO Q6H PRN #7 tab MDD 4 PRN Reason: Moderate Pain Tamsulosin HCl [Flomax] 0.4 mg PO DAILY #7 cap.er.24h - Follow up/Referral Referrals: Felix Mccoy MD [Primary Care Provider] - Heath Palencia MD [Staff Physician] - - Patient Discharge Instructions Patient Printed Discharge Instructions: Kidney Stones (Alternative Therapy) Additional Instructions: Drink plenty of fluids Take Flomax as prescribed Take ibuprofen every 6 hours as needed for dbap-[id number]-[id number] pain Take Percocet every 6 hours as needed for moderate pain Follow-up with a urologist as soon as possible Return to the emergency room if symptoms worsen - Post Discharge Activity Work/Back to School Note: Back to Work
[2019-06-27] MEDS ORDERED: ONDANSETRON 4 MG/2 ML VIAL IVPUSH ONE (00:30)
[2019-06-27] MEDS ORDERED: ACETAMINOPHEN INJECTION 100 ML IVPB ONE (00:39)
[2019-06-27] MEDS ORDERED: ONDANSETRON 4 MG/2 ML VIAL ONE (00:39)
[2019-06-27 01:16] LABS: EOS % 2.3 % (0-4.5); HEMATOCRIT 46.7 % (35.4-49); HEMOGLOBIN 16.1 GM/dL (11.7-16.9); LYMPH % 21.7 % (8-40); MCH 32.5 pg (25.7-33.7); MCHC 34.4 g/dl (32.0-35.9); MEAN CELL VOLUME 94.5 fl (80-96); MEAN PLT VOLUME 7.4 fl (7.5-11.1); MONO % 7.6 % (3.8-10.2); NEUT % 67.4 % (42.8-82.8); PLATELET COUNT 223 K/MM3 (134-434); RBC 4.94 M/mm3 (4.00-5.60); RDW 13.4 % (11.9-15.9); WHITE BLOOD COUNT 11.4 K/mm3 (4.0-10.0)
[2019-06-27 01:35] LABS: EPI CELLS 0.9 /HPF (0-5/HPF); HYALINE CASTS 7 /lpf (0-8); PH,URINE 6.5 (5.0-8.0); URINE APPEARANCE TURBID; URINE BACTERIA 8.4 /hpf (NEGATIVE); URINE BILIRUBIN NEGATIVE (NEGATIVE); URINE COLOR YELLOW; URINE GLUCOSE (UA) NEGATIVE (NEGATIVE); URINE KETONE NEGATIVE (NEGATIVE); URINE LEUK ESTERASE NEGATIVE (NEGATIVE); URINE NITRITE NEGATIVE (NEGATIVE); URINE PROTEIN TRACE (NEGATIVE); URINE RBC 80 /hpf (0-4); URINE UROBILINOGEN 0.2 mg/dL (0.2-1.0); URINE WBC 1 /hpf (0-5)
[2019-06-27 01:52] LABS: ALBUMIN 4.2 g/dl (3.4-5.0); BILIRUBIN,TOTAL 0.5 mg/dL (0.2-1); CALCIUM 9.3 mg/dL (8.5-10.1); CREATININE 1.1 mg/dL (0.55-1.3); POTASSIUM 3.6 mmol/L (3.5-5.1); TOT PROT 7.8 g/dl (6.4-8.2)
[2019-06-27] MEDS ORDERED: TAMSULOSIN HCL 0.4 MG CAP PO ONE (03:55)
[2019-06-27] MEDS ORDERED: KETOROLAC TROMETHAMINE 30 MG/1 ML VIAL IVPUSH ONE (03:55)
[2019-06-27] MEDS ORDERED: KETOROLAC TROMETHAMINE 30 MG/1 ML VIAL ONE (04:05)
[2019-06-27] MEDS ORDERED: TAMSULOSIN HCL 0.4 MG CAP ONE (04:05)
[2019-06-27 04:41] VITALS: BP 130/92; PULSE 70
--- NOTE | 2019-06-27 13:02 | EKG ---
Test Reason : Blood Pressure : / mmHG Vent. Rate : 079 BPM Atrial Rate : 079 BPM P-R Int : 168 ms QRS Dur : 086 ms QT Int : 352 ms P-R-T Axes : 060 022 059 degrees QTc Int : 403 ms NORMAL SINUS RHYTHM NORMAL ECG WHEN COMPARED WITH ECG OF 27-MAR-2017 14:44, NO SIGNIFICANT CHANGE WAS FOUND Confirmed by Lefty Fajardo MD ([id number]) on 06/27/2019 1:01:57 PM Referred By: Confirmed By:Lefty Fajardo MD
== END 2019-06-27 04:44 | disposition home or self-care (01) ==
LOC: JER 21:58
PROC: 3E033NZ Introduction of Analgesics, Hypnotics, Sedatives into Peripheral Vein, Percutaneous Approach (ICD-10-PCS; principal; 2019-06-26)
PROC: 3E0333Z Introduction of Anti-inflammatory into Peripheral Vein, Percutaneous Approach (ICD-10-PCS; 2019-06-26)
DX: N13.2 Hydronephrosis with renal and ureteral calculous obstruction (principal); I10 Essential (primary) hypertension; E11.9 Type 2 diabetes mellitus without complications; Z79.84 Long term (current) use of oral hypoglycemic drugs; E78.5 Hyperlipidemia, unspecified
CPT/HCPCS: 36415; 74177-TC; 80053; 81003; 83690; 85025; 93005; 93010; 96374; 96375; 99284-25; J0131

== ENCOUNTER 2019-12-07 07:36 | Day surgery (SDC) | payer OTHER ==
[2019-12-04 14:33] VITALS: BMI 23.6
[2019-12-07] MEDS ORDERED: ceFAZolin SODIUM 1 GM VIAL ONE (08:40)
[2019-12-07] MEDS ORDERED: PROPOFOL 20 ML ONE ×2 (08:41→08:59)
[2019-12-07] MEDS ORDERED: ONDANSETRON 4 MG/2 ML VIAL ONE (08:59)
[2019-12-07] MEDS ORDERED: KETOROLAC TROMETHAMINE 30 MG/1 ML VIAL ONE (08:59)
[2019-12-07] MEDS ORDERED: oxyCODONE HCL 5 MG TABLET PO PRN ×2 (09:42)
[2019-12-07] MEDS ORDERED: ONDANSETRON 4 MG/2 ML VIAL IVPUSH PRN (09:42)
[2019-12-07] MEDS ORDERED: LACTATED RINGERS SOLUTION 1,000 ML IV SCH (09:45)
[2019-12-07] MEDS ORDERED: LIDOCAINE HCL 1%, 10 MG/ML (20ML VIAL) ONE (09:52)
[2019-12-07] MEDS ORDERED: BUPIVACAINE HCL/PF 0.25% (2.5MG/ML) 10 ML VIAL ONE (09:52)
[2019-12-07] MEDS ORDERED: MIDAZOLAM HCL 2 MG/2 ML SINGLE DOSE VIAL ONE (09:58)
[2019-12-07] MEDS ORDERED: ROPIVACAINE HCL 0.5% 30ML VIAL ONE (09:58)
--- NOTE | 2019-12-07 11:54 | OP ---
Operative Note - Note: Operative Date: 12/07/19 Pre-Operative Diagnosis: right elbow lateral epicondylitis, tear of ECRB tendon Operation: right elbow lateral epicondylectomy, repair of ECRB tendon Post-Operative Diagnosis: Same as Pre-op Surgeon: Danilo Garrett Anesthesiologist/CLINICAL APPLICATION CONSULTANT: Opal Hernandez Anesthesia: General, Local Specimens Removed: tendon Estimated Blood Loss (mls): 0 Drains, Volume Out (mls): 0 Blood Volume Replaced (mls): 0 Fluid Volume Replaced (mls): 1,000 Operative Report Dictated: Yes
[2019-12-07 12:18] VITALS: TEMP 97.8
[2019-12-07 14:45] VITALS: BP 105/69; PULSE 86
--- NOTE | 2019-12-08 13:30 | OP ---
DATE OF OPERATION: 12/07/2019 PREOPERATIVE DIAGNOSIS: Right elbow lateral epicondylitis and tear of extensor carpi radialis brevis tendon. POSTOPERATIVE DIAGNOSIS: Right elbow lateral epicondylitis and tear of extensor carpi radialis brevis tendon. PROCEDURE: Right elbow lateral epicondylectomy and repair of extensor carpi radialis brevis tendon. SURGEON: Danilo Garrett MD ASSISTANTS: None. ANESTHESIOLOGIST: Opal Hernandez MD ANESTHESIA: Right interscalene block with LMA anesthesia. DRAINS: None. COMPLICATIONS: None. SPECIMEN: Chronic inflammatory tissue, right elbow tendon. BLOOD LOSS: None. BLOOD GIVEN: None. FLUID REPLACEMENT: Plasma-Lyte, 1000 mL. INDICATIONS: This patient is a 49-year-old male with the preoperative diagnosis of right elbow chronic lateral epicondylitis that was recalcitrant to nonoperative treatment and an MRI that showed chronic lateral epicondylitis and a tear of the ECRB tendon origin. After understanding the potential risks, complications, alternatives and benefits of surgery versus nonsurgical treatment the patient elected to undergo this procedure. DESCRIPTION OF PROCEDURE: The patient was brought to the operating room. Peripheral IV placed and IV sedation given. A right interscalene block was performed. Two grams of IV Ancef were given. LMA anesthesia was induced. He was placed into the sloppy lateral position. A tourniquet was applied to the right upper arm. Right upper extremity was then prepped and draped in a sterile fashion, elevated, exsanguinated with an Esmarch bandage, the tourniquet inflated to 250 mmHg. A curvilinear incision was marked out with a marking pen directly over the right elbow lateral epicondyle. The incision was made with a No. 15 scalpel blade. Subcutaneous hemostasis was achieved with the bipolar cautery. Dissection was done with the Littler scissors down through the superficial fascia. Weitlaner retractors were placed into the wound. Anterior and posterior flaps were made, exposing the lateral epicondyle and the origin of the ECRB. No zbigniew tendon tear was obvious from the outside of the tendon fascia. Next I made 3 longitudinal slits with the No. 15 scalpel blade in the central portion of the origin of the ECRB and lateral epicondyle in the more superior position and the more posterior position. In the central slit there was a significant amount of chronic inflammatory tissue. It was removed with a combination of the small curet and rongeur. Then I mildly decorticated the bone by scraping it with a curet. The area was copiously irrigated and washed out. No other abnormal tissue was seen. It did seem to be a more distal tear with some retraction off the lateral epicondyle. This was repaired using 2-0 Vicryl sutures in a running baseball stitch fashion. Before the repair was done I did take a 0.062 K-wire and make 6 drill holes in the central slit in the lateral epicondyle. Then I did the repair as mentioned. I then did the same technique of finding the chronic inflammatory tissue, scraping it away, mildly decorticating the bone, making 6 small holes with the 0.062 K-wire through the bone until the bone marrow came out and then did a repair using 2-0 Vicryl sutures of the tendon tear. Therefore, there was a total of 3 slits and 3 repairs. The area was copiously irrigated and washed out. No other abnormalities were visualized. The fascia was closed over the repair and the deep dermal layer closed with 4-0 undyed Vicryl. Final skin reapproximation was done with a running subcuticular 3-0 Biosyn stitch. The area was then washed and dried, covered with Steri-Strips, 4 x 4's, Webril and a 4-inch posterior Orthoglass splint was applied, wrapped with IDALIA bandages. The tourniquet was taken down after a total tourniquet time of about 50 minutes. There were no complications during the case. The patient tolerated the procedure well and was brought to the ambulatory recovery room in stable condition. Alireza [id number]
--- NOTE | 2019-12-12 16:09 | PATH ---
Surgical Pathology Report Patient Name: DAVID SMITH Med. Rec. #: [id number] /Age/Gender: 1970 (Age: 49) / M Account: [id number] Location: [facility] Taken: 12/07/2019 Received: 12/07/2019 Reported: 12/12/2019 Physicians: Danilo Garrett M.D. Specimen(s) Received RIGHT ELBOW TENDON Clinical History Right elbow epicondylectomy Final Diagnosis RIGHT ELBOW TENDON, EPICONDYLECTOMY: FIBROADIPOSE AND SYNOVIAL TISSUE WITH FOCAL FIBROSIS, ADMIXED WITH TINY BONE FRAGMENTS. Electronically Signed Scott Gomes M.D. Gross Description Received in formalin labeled "right elbow tendon," is a 1.8 x 1.4 x 0.3 cm aggregate of palm soft tissue fragments. The specimen is entirely submitted in one cassette. /12/08/2019 saudi/12/08/2019
== END 2019-12-07 14:45 | disposition home or self-care (01) ==
LOC: FASU 07:36
PROVIDERS: ATTEND Orthopaedic Surgery
PROC: 0PBF0ZZ Excision of Right Humeral Shaft, Open Approach (ICD-10-PCS; 2019-12-07)
PROC: 0LQ30ZZ Repair Right Upper Arm Tendon, Open Approach (ICD-10-PCS; principal; 2019-12-07 10:48)
DX: M77.11 Lateral epicondylitis, right elbow (principal); M66.231 Spontaneous rupture of extensor tendons, right forearm
CPT/HCPCS: 82962; 88304-TC; 94760

== ENCOUNTER 2020-04-14 16:14 | Emergency (ER) | payer OTHER ==
[2020-04-14 16:36] VITALS: BP 119/89; PULSE 83; TEMP 97.8; BMI 23.6
[2020-04-14] MEDS ORDERED: CYCLOBENZAPRINE HCL 10 MG TABLET (FP) PO ONE (16:52)
[2020-04-14] MEDS ORDERED: KETOROLAC TROMETHAMINE 60 MG/2 ML VIAL IM ONE (16:52)
[2020-04-14] MEDS ORDERED: KETOROLAC TROMETHAMINE 60 MG/2 ML VIAL ONE (17:00)
[2020-04-14] MEDS ORDERED: CYCLOBENZAPRINE HCL 10 MG TABLET (FP) ONE (17:00)
== END 2020-04-14 17:25 | disposition home or self-care (01) ==
LOC: JERFT 16:14
PROC: 3E0233Z Introduction of Anti-inflammatory into Muscle, Percutaneous Approach (ICD-10-PCS; principal; 2020-04-14)
DX: M54.5 Low back pain (principal)
CPT/HCPCS: 99284-25

== ENCOUNTER → 2020-10-03 | Day surgery (SDC) | payer OTHER | END | disposition home or self-care (01) | LOC: JRADIR 09:52 | PROVIDERS: ATTEND Internal Medicine Endocrinology, Diabetes & Metabolism | PROC: 0G9K3ZX Drainage of Thyroid Gland, Percutaneous Approach, Diagnostic (ICD-10-PCS; principal; 2020-10-03) | DX: E04.1 Nontoxic single thyroid nodule (principal) | CPT/HCPCS: 10005; 76942; 88173; 88305-TC ==

== ENCOUNTER 2024-10-08 14:02 | Emergency (ER) | payer OTHER ==
[2024-10-08 14:08] VITALS: RESP 18; TEMP 98.3; BMI 27.2
[2024-10-08] MEDS ORDERED: ACETAMINOPHEN INJECTION 100 ML ONE (14:37)
[2024-10-08] MEDS ORDERED: METOCLOPRAMIDE HCL INJECTION 10 MG/2 ML VIAL ONE (14:37)
[2024-10-08 14:47] LABS: ABSOLUTE IMMATURE GRANULOCYTES 0.02 x10^3/uL (0.0-0.031); BASOPHILS # 0.06 x10^3/uL (0.01-0.08); EOSINOPHIL % 5.2 % (0.8-7.0); EOSINOPHILS # 0.36 x10^3/uL (0.04-0.54); HEMATOCRIT 44.4 % (40.1-51.0); HEMOGLOBIN 15.2 g/dL (13.7-17.5); MCHC 34.2 g/dl (32.3-36.5); MEAN CELL VOLUME 93.7 fl (79.0-92.2); MEAN PLT VOLUME 8.6 fl (9.4-12.4); MONOCYTE # 0.59 x10^3/uL (0.30-0.82); MONOCYTE % 8.6 % (5.3-12.2); PLATELET COUNT 262 x10^3/uL (163-337); RDW 12.4 % (12.2-16.1)
[2024-10-08 14:55] LABS: INR 1.04 (0.83-1.09); PROTHROMBIN TIME (PATIENT) 11.3 SEC (9.7-13.0)
[2024-10-08 14:57] LABS: ACTIVATED PTT 31.2 SECONDS (25.2-36.5)
[2024-10-08] MEDS: ACETAMINOPHEN 1000 MG/100 ML BAG IVPB ONE (15:02)
[2024-10-08] MEDS: SODIUM CHLORIDE 0.9% 500 ML INFUS.BAG IV ONE (15:02)
[2024-10-08] MEDS: METOCLOPRAMIDE HCL INJECTION 10 MG/2 ML VIAL IVPB ONE (15:02)
[2024-10-08] MEDS ORDERED: LORazepam 2 MG/ML SDV VIAL ONE (15:05)
[2024-10-08 15:08] LABS: ALBUMIN 4.1 g/dl (3.4-5.0); CALCIUM 9.4 mg/dL (8.5-10.1)
[2024-10-08 15:09] LABS: BLOOD UREA NITROGEN 16.2 mg/dL (7-18); MAGNESIUM 2.2 mg/dL (1.8-2.4)
[2024-10-08] MEDS: LORazepam 2 MG/ML SDV VIAL IVPUSH ONE (15:09)
[2024-10-08 15:12] LABS: CREATININE 1.1 mg/dL (0.55-1.3)
[2024-10-08 15:13] LABS: BILIRUBIN,TOTAL 0.5 mg/dL (0.2-1); TOT PROT 7.4 g/dl (6.4-8.2)
[2024-10-08 17:53] VITALS: BP 115/80; PULSE 105
== END 2024-10-08 18:39 | disposition home or self-care (01) ==
LOC: JER 14:02
PROC: 3E033NZ Introduction of Analgesics, Hypnotics, Sedatives into Peripheral Vein, Percutaneous Approach (ICD-10-PCS; principal; 2024-10-08)
PROC: 3E033GC Introduction of Other Therapeutic Substance into Peripheral Vein, Percutaneous Approach (ICD-10-PCS; 2024-10-08)
PROC: 3E033GC Introduction of Other Therapeutic Substance into Peripheral Vein, Percutaneous Approach (ICD-10-PCS; 2024-10-08)
DX: R42 Dizziness and giddiness (principal); R06.4 Hyperventilation; R07.9 Chest pain, unspecified; R55 Syncope and collapse
CPT/HCPCS: 36415; 70450-TC; 71275-TC; 74174-TC; 80053; 82962; 83735; 84484; 85025; 85610; 85730; 93005; 93010; 99285-25; J0131